=== PATIENT | female | born 1985 | race Caucasian/White ===

== ENCOUNTER 2020-01-20 16:12 | Emergency (ER) | payer OTHER, SELFPAY ==
[2020-01-20 16:26] VITALS: BP 116/68; PULSE 100; RESP 20; TEMP 36.6; O2SAT 100; BMI 30.4
[2020-01-20 18:37] VITALS: BP 109/60; PULSE 78; RESP 20; TEMP 36.4; O2SAT 100
--- NOTE | 2020-01-20 19:10 | ED_ITS ---
HPI - Headache General Chief Complaint: Headache Stated Complaint: HEADACHE Time Seen by Provider: 01/20/20 18:44 Source: patient Mode of arrival: ambulatory Limitations: no limitations History of Present Illness HPI Narrative: patient presents to ED for stressed induced headache. Patient states she has been under a lot of stress and anxiety which caused her shoulder to feel tight, body aches, slight headache. Patient denies any fever, chills, blurry vision, photophobia, thunderclap headache, dizziness, slurred speech, paralysis of extremities, chest pain, shortness of breath. Patient does admit to history of migraines. Patient denies any recent head trauma. Patient states her shoulders j and other pressure points on body feel tight due to her fibromyalgia. Patient denies any coughing or recent supposed to go visit. Patient denies anyone else at home having cold-like symptoms. MD elicited complaint: headache and migraine Pertinent past history: migraines Exacerbating factors: none Relieving factors: NSAIDs Associated symptoms: none Treatments prior to arrival: none Related Data Allergies Allergy/AdvReac Type Severity Reaction Status Date / Time gabapentin [GABAPENTIN] Allergy Unknown UNKNOWN, Verified 01/20/20 16:14 anaphylaxis, SOB hydroxyzine [From VIST[facility]] Allergy Unknown UNKNOWN Verified 01/20/20 16:14 tramadol [TRAMADOL] Allergy Unknown UNKNOWN, Verified 01/20/20 16:14 anxiety Review of Systems Review of Systems: Yes all other systems are reviewed and are negative Constitutional: Constitutional: Reports headache(s) Eyes: Eyes: Reports as per HPI, Reports no additional eye complaints, Denies change in vision, Denies decreased night vision, Denies diplopia, Denies loss of vision and Denies photophobia ENT: Reports system reviewed and no additional complaints, except as documented, Reports Normal hearing present, Denies dental pain, Denies dysphagia, Denies vertigo, Denies dizziness, Denies dry mouth, Denies ear discharge, Denies otalgia, Denies facial pain, Reports headache(s), Denies nasal trauma, Denies neck mass, Denies neck pain and Denies nose pain Cardiovascular: Cardiovascular: Reports no additional cardiovascular complaints, Denies Abdominal Cramping after Meds, Denies Abdominal Distension, Denies syncope, Denies edema, Denies irregular heart rhythm, Denies leg edema, Denies lightheadedness, Denies radiating jaw, neck or arm pain, Denies dyspnea and Denies dyspnea on exertion Respiratory: Respiratory: Reports no additional respiratory complaints, Reports no additional respiratory complaints, Denies change in phlegm color, Denies chest congestion, Denies cough, Denies hemoptysis, Denies excessive phlegm production, Denies pain on inspiration, Denies pain with cough, Denies dyspnea, Denies dyspnea on exertion, Denies stridor and Denies wheezing Gastrointestinal: Gastrointestinal: Reports no additional gastrointestinal complaints, Denies abdominal pain, Denies belching, Denies melena, Denies bloating, Denies hematochezia, Denies change in bowel habits, Denies tenesmus, Denies change in stool character, Denies coffee ground emesis and Denies dysphagia Musculoskeletal: Musculoskeletal: Denies abnormal gait, Denies back pain, Denies arthralgias, Denies joint swelling, Denies limited range of motion, Denies loss of height, Denies muscle cramps, Denies neck pain, Denies numbness and Denies radiating pain into limb Neurologic: Reports system reviewed and no additional complaints, except as documented, Reports Normal hearing present, Denies abnormal gait, Denies behavioral changes, Denies vertigo, Denies dizziness, Denies syncope, Reports headache(s), Denies lack of coordination, Denies focal weakness, Denies loss of vision, Denies memory loss, Denies numbness, Denies Other visual disturbances and Denies convulsions Psychiatric: Psychiatric: Reports no additional psychiatric complaints, Denies abnormal sleep pattern, Reports anxiety, Denies behavioral changes, Denies depression, Denies difficulty concentrating, Denies auditory hallucinations, Denies hopelessness and Denies memory loss Allergic/Immunologic: Allergic/Immunologic: Denies wheezing PMFSH Past Medical History Medical History (Updated 01/21/20 @ 02:09 by PAULA Isabel) Anxiety Asthma Depression Fibromyalgia Thyroid activity decreased Social History Social History Advance Directives: No Advance Directives Information Provided: Yes Physical Exam Vital Signs and I&O and Narrative: Vital Signs and I&O: Vital Signs Temp 97.6 F 01/20/20 18:37 Pulse 78 01/20/20 18:37 Resp 20 01/20/20 18:37 BP 109/60 01/20/20 18:37 Pulse Ox 100 01/20/20 18:37 Intake & Output 01/20/20 01/20/20 01/21/20 06:59 18:59 06:59 Weight 78.018 kg Body Mass Index 30.4 Const: General: cooperative, healthy appearing, comfortable, no acute distress and well developed Orientation/consciousness: oriented to person, oriented to place, oriented to time and patient oriented x3 HENMT: Head: Yes normal to inspection, No No palpable skull fracture present, No palpable skull fracture and No raccoon eyes General nose exam: Normal external nose present Face and sinus: Yes normal facial exam Mouth: Normal oral and palatal mucosa present Throat: Yes posterior oropharynx normal, Yes tonsils normal, Yes uvula midline, No abnormal tonsil, No peritonsillar mass and No posterior oropharynx abnormal Eyes: General: appearance normal, both eyes and all related structures Visual Sauceda: normal visual sauceda by confrontation Alignment and Position: alignment normal and position normal Periorbital: periorbital findings normal Eyelids: Yes eyelids normal Conjunctivae: conjunctivae normal Sclerae: sclerae normal Direct Ophthalmoscopy: No photophobia Neck: Neck: Yes normal visual inspection, Yes full ROM, Yes no lymp hadenopathy, No positive Brudzinski's sign and No positive Kernig's sign Chest: Chest palpation & inspection: normal inspection of the chest, normal palpation of entire chest wall and normal inspection of the chest Resp: Effort & Inspection: normal respiratory effort, able to speak in complete sentences, normal respiratory pattern, no audible wheezes and no cough Auscultation: clear to auscultation bilaterally, no crackles, no rales, no rhonchi and no wheezes Cardio: Jugular venous distension: no JVD Rate: regular rate Heart sounds: S1 normal heart sound present and S2 normal heart sound present GI: Inspection: Yes normal to inspection, No abdominal wall ecchymosis, No Abdominal wall edema and No distended Palpation (GI): nontender Percussion: Yes normal to percussion : General: No CVA tenderness and Yes no CVA tenderness Back/Spine/Pelvis: Back: no CVA tenderness, No CVA tenderness, No erythema, No warmth, No sacral edema, No ecchymosis and No back tenderness Skin: General skin exam: no rashes or lesions noted Neuro: General: oriented to person, oriented to place, oriented to time, patient oriented x3, gait normal and CN's II-XI intact bilaterally Cranial nerves: Yes CN's II-XII intact bilaterally and Yes Normal hearing present Gait exam (Neuro): Normal gait present Extrem: General: Yes normal to inspection and Yes full ROM Psych: Appearance: grossly normal and well kempt Mental Status: mental status grossly normal Speech and movement: Normal speech and movement present Course Course Course Narrative: History physical exam does not indicate meningitis. Negative for clear fluid from ears and negative for work tonight eyes to indicate head trauma. Negative for photophobia. Lungs are clear. Neuro exam is intact. History physical exam does not indicate stroke. Patient's sound like having tension headache from stress and anxiety. Patient states she has a therapist, but her therapist does not keep up with the appointments. We will do UA, UCG to make sure she is not . Toradol, Reglan, Fioricet ordered. Reevaluation(s) Reevaluation #1: Patient presently not in any distress, labs not indicated. Time: 19:19 Reevaluation #2: patient requested is seeing somebody for her anxiety, patient was tearful. Patient states headache resolved. Patient states she feels stressed any someone to talk to. Care consulted gely's spoke with patient and refer her to [facility]. She agrees patient does not need admission. workforce consultant Gely organized follow-up with PCP for more support for her anxiety and possibly starting patient on psych meds. patient walked out the ER before discharge papers can be prepared or prescription could be given to her. Time: 02:06 MDM - Headache MDM Narrative Medical decision making narrative: Patient's headache most likely tension headache due to stress and anxiety. Patient was seen by residential caregiver abelardo barriga for her anxiety. History physical exam did not indicate meningitis or signs of trauma to indicate head bleed. Patient's headache resolved with pain meds in the ER. Patient walked out the ER before re-evaluation and also discharge papers being prepared Differential Diagnosis Differential diagnosis: Likely tension headache Lab Data Labs: Lab Results 01/20/20 Range/Units 20:19 Urine Color YELLOW Urine Appearance CLEAR Urine pH 6.0 (5.0-8.0) Ur Specific [place] >= 1.030 H (1.005-1.025) Urine Protein NEG (NEG-TRACE) MG/DL Urine Glucose (UA) 100 H (NEG) MG/DL Urine Ketones NEG (NEG) MG/DL Urine Blood NEG (NEG) Urine Nitrite NEG (NEG) Ur Leukocyte Esterase NEG (NEG) Urine Test NEGATIVE (NEGATIVE) Discharge Plan Discharge Clinical Impression: Headache Qualifiers: Headache type: tension-type Patient Disposition: Elopement Instructions: Tension Headache (ED) Interventions: ED Discharge Assessment Last Done: 01/20/20 21:52
[2020-01-20] MEDS: Ketorolac Tromethamine 30 MG/ML VIAL IM (19:13)
[2020-01-20 20:27] LABS: Appearance Urine CLEAR; Color Urine YELLOW; Glucose Urine UA 100 MG/DL (NEG); Leukocyte Esterase Urine NEG (NEG); Nitrite Urine NEG (NEG); Specific Gravity - Urine >= 1.030 (1.005-1.025); Urine Blood NEG (NEG); Urine Ketones NEG (NEG); Urine Protein NEG (NEG-TRACE)
[2020-01-20 20:29] LABS: UPreg QC Valid YES; Urine Pregnancy NEGATIVE (NEGATIVE)
--- NOTE | 2020-01-20 21:47 | MHC.CARE ---
CARE team consult requested for 34 year old female who presented to ED with complaints of a headache and worsening symptoms of anxiety and depression secondary to family and home stress. Pt reported that she lives with her four children, her , and her mother, and despite there being two other adults in the home, pt does not have any support with taking care of the children. Pt expressed feeling overwhelmed and irritated with the situation, stating that if she isn't home and the children do anything at all that her mother or will call her to let her know and that she has to address it. Pt reported feeling depressed and anxious, and that she is currently connected with a therapist however she has had minimal contact with the therapist over the past few months, as she stated that the therapist (Ella at [facility]) will call when she feels like it and does most of the talking during these phone calls. Pt was previously engaged with a therapist at [facility] (Jazz), however due to missing too many appointments pt was discharged. This marketing copywriter discussed with pt strategies for addressing the challenges around making and keeping scheduled appointments, such as setting alarms and notifications on her phone, leaving a note in an unavoidable spot in the home, and scheduling a standing day and time for appointments to reinforce the memory and habit of having therapy sessions. Pt reported that she is not currently prescribed any psychiatric medications at this time, however was previously prescribed buspar and paxil. Pt stated that she recently was transferred to a different PCP and has an appt scheduled for sometime in February. Pt was encouraged to speak with her PCP about her depression and anxiety symptoms and explore an trial of an antidepressant or another medication that can aid with pt's mood and coping. ED provider was updated regarding recommendations made to address pt's complaints, and a referral for individual therapy at [facility] will be faxed to [facility].
--- NOTE | 2020-01-20 21:51 | PC.NURSE ---
pt did not want to wait for paperwork
== END 2020-01-20 21:55 | disposition left against medical advice (07) ==
PROVIDERS: Physician Assistant; Emergency Provider Internal Medicine
DX: G44.209 Tension-type headache, unspecified, not intractable (principal)
CPT/HCPCS: 81003; 81025; 96372; 99283; 99284; J1885

== ENCOUNTER 2020-11-18 12:14 | Emergency (ER) | payer OTHER, SELFPAY ==
--- NOTE | ~2020-11-18 | XR_ITS ---
EXAMINATION: XR CHEST CLINICAL INFORMATION: Cough, wheezing COMPARISON: Chest radiographs 08/12/2019, 07/23/2019, 06/20/2019 TECHNIQUE: 2 views of the chest were obtained. FINDINGS: There is no hyperinflation, airspace consolidation, groundglass opacity, or effusion. Costophrenic sulci are clear. The heart is normal in size. The hilar and mediastinal contours and visualized bony structures are unremarkable. XR/XR chest 2V IMPRESSION: Unremarkable examination.
[2020-11-18 12:50] VITALS: BP 94/67; PULSE 100; RESP 19; TEMP 36.1; O2SAT 99; BMI 26.4
--- NOTE | 2020-11-18 14:02 | ED.GENADULT ---
HPI - General Adult General Chief complaint: General Medical Stated complaint: Asthma Time Seen by Provider: 11/18/20 13:54 Source: patient Mode of arrival: ambulatory Limitations: no limitations History of Present Illness HPI narrative: 35 y/o female with history of mild intermitent asthma presenting with mild SOB and wheezing after she ran out of her albuterol inhaler today. She reports some dry cough and wheezing since yesterday. No fever, chills, headache, myalgias, chest pain, KHAN, N/V/D. No known exposure to COVID. She tried calling her doctor for a refill but was unable to get through so she came to the ER. complaint: asthma Onset (ago): day(s) Location: chest Radiation: non-radiation Severity: mild Pain Consistency: intermittent Relieving factors: medication Exacerbating factors: movement Associated symptoms: shortness of breath Treatments prior to arrival: none Related Data Previous Rx's Medication Instructions Recorded albuterol sulfate 90 mcg/actuation 1 inh INHALATION QID PRN #6.7 g 11/18/20 aerosol inhaler prednisone 20 mg tablet 40 mg PO DAILY #10 tab 11/18/20 Allergies Allergy/AdvReac Type Severity Reaction Status Date / Time gabapentin [GABAPENTIN] Allergy Unknown UNKNOWN, Verified 02/16/20 10:18 anaphylaxis, SOB hydroxyzine [From [facility]] Allergy Unknown UNKNOWN Verified 02/16/20 10:18 tramadol [TRAMADOL] Allergy Unknown UNKNOWN, Verified 02/16/20 10:18 anxiety Review of Systems Review of Systems: Constitutional: No Fever, No Chills ENT/Mouth: No sore throat, No Rhinorrhea, No Swallowing Difficulty Cardiovascular: No Chest Pain, + SOB, No Orthopnea, No Edema Respiratory: No Cough, No Sputum, + Wheezing, No dyspnea Gastrointestinal: No Nausea, No Vomiting, No Diarrhea, No abdominal Pain Musculoskeletal: No joint pain, No Myalgias Neuro:No Headache Heme/Lymph: No Lymphadenopathy PMFSH Past Medical History Attestation statement: The following information was validated with the patient. Medical History Anxiety Asthma Depression Fibromyalgia Thyroid activity decreased Surgical History History of cholecystectomy History of removal of ovarian cyst Family History Family History (Updated 02/16/20 @ 10:21 by Brittany Hernandez, [facility]) Father Prediabetes Sleep apnea Hx of fusion of cervical spine Poor circulation Mother Neuropathy Vertigo Diabetes Hypertension Paternal Grandmother Lupus Depression Bipolar 1 disorder Maternal Grandmother Diabetes Social History Social History Advance Directives: No Advance Directives Information Provided: Yes Patient : No Physical Exam Vital Signs: Vital Signs: Last Vital Signs Temp 97 F 11/18/20 12:50 Pulse 100 11/18/20 12:50 Resp 19 11/18/20 12:50 BP 94/67 11/18/20 12:50 Pulse Ox 99 11/18/20 12:50 Body Mass Index 26.4 Appearance: Alert. Oriented X3. No acute distress. HEENT: normal external inspection ENT: Pharynx normal. Neck: Normal inspection. Neck supple. CVS: Normal heart rate and rhythm. Pulses normal. Respiratory: No respiratory distress. Speaks in complete sentences. Faint end expiratory wheeze bilaterally, no rhonchi or rales Skin: Skin warm and dry. Normal skin color. Normal skin turgor. No rashes. Extremities: No lower extremity edema. No calf tenderness on palpation, no skin changes. Neuro: Oriented X 3. No motor deficit. No sensory deficit. Course Course Course Narrative: 35 y/o female presenting with mild wheezing and SOB after she ran out of her albuterol inhaler. +dry cough. Will check CXR and COVID swab. She is nontoxic appearing, afebrile, in no respiratory distress. Reevaluation(s) Reevaluation #1: CXR clear. Will call with Viral PCR results. She is vaccinated against COVID-19. She is stable for discharge home with prednisone and PRN albuterol. Patient agrees with plan. Critical Care Time Critical Care Time Critical Care Time: No Discharge Plan Discharge Clinical Impression: Asthma Qualifiers: Asthma severity: mild Asthma persistence: intermittent Asthma complication type: unspecified Qualified Code(s): J45.20 - Mild intermittent asthma, uncomplicated Patient Disposition: Home, Self-Care Instructions: Asthma (ED) Additional Instructions: Your chest x-ray was normal. You were tested for COVID-19, Flu and RSV. We will call you with the results this afternoon. Use the prescribed albuterol inhaler as directed. Take the prescribed steroid once per day for 5 days. Follow up with your doctor in 1 week. If you develop new or worsening symptoms call 911 or come back to the ER for further evaluation. Prescriptions: New prednisone 20 mg tablet 40 mg PO DAILY Qty: 10 RF: 0 albuterol sulfate 90 mcg/actuation HFA aerosol inhaler 1 inh inhalation QID PRN (Reason: shortness of breath or wheezing) Qty: 6.7 RF: 0
[2020-11-18 16:08] LABS: Influenza A PCR NEGATIVE (Negative); Influenza B PCR NEGATIVE (Negative); Resp Syncy Virus RNA Qual PCR NEGATIVE (Negative); SARS COV2 PCR INHOUSE NEGATIVE (Negative)
== END 2020-11-18 15:30 | disposition home or self-care (01) ==
PROVIDERS: Physician Assistant; Emergency Provider Emergency Medicine
DX: J45.20 Mild intermittent asthma, uncomplicated (principal); Z20.822 Contact with and (suspected) exposure to COVID-19; Z79.899 Other long term (current) drug therapy
CPT/HCPCS: 0241U; 36415; 71046; 99283

== ENCOUNTER 2020-12-30 19:58 | Emergency (ER) | payer OTHER, SELFPAY ==
[2020-12-30 20:54] VITALS: BP 110/78; PULSE 78; RESP 16; TEMP 36.2; O2SAT 100; BMI 26.5
[2020-12-30 21:17] LABS: Appearance Urine CLEAR; Color Urine YELLOW; Glucose Urine UA NEG (NEG); Leukocyte Esterase Urine NEG (NEG); Nitrite Urine NEG (NEG); Specific Gravity - Urine 1.015 (1.005-1.025); UACC Culture Trigger NO; Urine Blood 1+ (NEG); Urine Ketones NEG (NEG); Urine Protein NEG (NEG-TRACE)
[2020-12-30 21:19] LABS: UPreg QC Valid YES; Urine Pregnancy NEGATIVE (NEGATIVE)
[2020-12-30 21:26] LABS: Bacteria Urine 1+ /LPF; Squamous Epithelial Cell Urine 1+ /LPF
[2020-12-30 21:27] LABS: RBC Urine 0-2 /HPF (0); WBC Urine 0 /HPF (0-4)
--- NOTE | 2020-12-30 22:57 | ED_ITS ---
HPI - General Adult General Chief complaint: Abdominal Pain Stated complaint: pelvic pain, vaginal bleeding Time Seen by Provider: 12/30/20 22:57 Source: patient Mode of arrival: ambulatory Limitations: no limitations History of Present Illness HPI narrative: 35-year-old female came in for evaluation of vaginal spotting. Patient had her menstruation last week than patient lift heavy box patient noted to have vaginal spotting after the, patient decline pain or cramps, patient also declined chance of being , no nausea or vomiting or fever. Patient declined heavy vaginal bleeding just few spots of blood in the liner. Related Data Previous Rx's Medication Instructions Recorded albuterol sulfate 90 mcg/actuation 1 inh INHALATION QID PRN #6.7 g 11/18/20 aerosol inhaler prednisone 20 mg tablet 40 mg PO DAILY #10 tab 11/18/20 Allergies Allergy/AdvReac Type Severity Reaction Status Date / Time gabapentin [GABAPENTIN] Allergy Unknown UNKNOWN, Verified 12/30/20 21:00 anaphylaxis, SOB hydroxyzine [From VISTARIL] Allergy Unknown UNKNOWN Verified 12/30/20 21:00 tramadol [TRAMADOL] Allergy Unknown UNKNOWN, Verified 12/30/20 21:00 anxiety Review of Systems Review of Systems: All other systems are reviewed and are negative Constitutional: Reports as per HPI and Reports no additional constitutional complaints Eyes: Reports as per HPI and Reports no additional eye complaints Reports system reviewed and no additional complaints, except as documented Cardiovascular: Reports as per HPI and Reports no additional cardiovascular complaints Respiratory: Reports as per HPI and Reports no additional respiratory complaints Gastrointestinal: Reports as per HPI and Reports no additional gastrointestinal complaints Genitourinary: Reports no additional female genitourinary complaints Musculoskeletal: Reports no additional musculoskeletal complaints Skin/Breast: Reports system reviewed and no additional complaints, except as docu Psychiatric: Reports no additional psychiatric complaints Endocrine: Reports no additional endocrine complaints Hematologic/Lymphatic: Reports no additional hematologic/lymphatic complaints Allergic/Immunologic: Reports no additional allergic/immunologic complaints Reports system reviewed and no additional complaints, except as documented and Reports Abnormal speech present [facility] Past Medical History Medical History Anxiety Asthma Depression Fibromyalgia Thyroid activity decreased Surgical History History of cholecystectomy History of removal of ovarian cyst Family History Family History Father Prediabetes Sleep apnea Hx of fusion of cervical spine Poor circulation Mother Neuropathy Vertigo Diabetes Hypertension Paternal Grandmother Lupus Depression Bipolar 1 disorder Maternal Grandmother Diabetes Social History Social History Advance Directives: No Advance Directives Information Provided: No Physical Exam Vital Signs: Vital Signs: Last Vital Signs Temp 97.6 F 12/31/20 00:00 Pulse 67 12/31/20 00:00 Resp 18 12/31/20 00:00 BP 111/67 12/31/20 00:00 Pulse Ox 99 12/31/20 00:00 Body Mass Index 26.5 Vital signs have been reviewed as appeared to be correct. Blood pressure normal. Heart rate normal. Respiration rate normal. Temperature normal. Oxygen saturation normal. Appearance: Alert. Oriented X3. No acute distress. Head: Normal external exam. Normocephalic. Atraumatic. No Walsh signs noted. No raccoon eyes noted Eyes: PERRLA. EOMI. Conjunctiva and sclera normal. Eyelids normal. ENT: TM's Normal. Pharynx normal. Uvula midline. Moist mucous membranes. No trismus noted. No drooling noted. No muffled voice noted. Neck: Normal inspection. Neck supple. FROM. No adenopathy. Thyroid Normal. No meningeal signs. No neck mass noted. CVS: Normal heart rate and rhythm. Heart sound normal. No murmurs noted. Pulses normal throughout. Respiratory: No respiratory distress. Painless inspiration. Breath sounds normal. No wheezes/rales/rhonchi noted. Chest nontender. No accessory muscle usage noted or decreased air movement noted. Abdomen: Soft and nontender. Bowel sounds normal in all 4 quadrants. No distention noted. No organomegaly noted. No visible injury noted. Pelvic exam: Deferred for her OBGYN as per patient request. Back: No CVA tenderness. Full range of motion noted. Skin: Skin warm and dry. Normal skin color. Normal skin turgor. No rashes/lesions/lacerations noted. Extremities: No lower extremity edema. Extremities exhibit normal range of motion. Extremities nontender. Neuro: Oriented X 3. Cranial nerve exam: II-XII are grossly intact No motor deficit. No sensory deficit. Reflexes normal. Course Course Course Narrative: Assessment and plan. 35-year-old female came in for evaluation of vaginal spotting, patient is not , no sign of severe infection, abdominal exam is benign, patient preferred to get to her OBGYN to get a pelvic exam and not doing it today. Medical Decision Making Lab Data Lab results reviewed: Yes I reviewed the patient's lab results. Result diagrams: 12/30/20 23:03 12/30/20 23:03 Labs: Lab Results 12/30/20 12/30/20 12/30/20 Range/Units 21:04 21:04 23:03 WBC 7.9 (4.8-10.8) X10*3/uL RBC 4.19 L (4.20-5.50) X10*6/uL Hgb 12.1 (12.0-16.0) g/dl Hct 35.7 L (37-47) % MCV 85.2 (80-98) fL MCH 28.9 (27.0-33.0) pg MCHC 33.9 (31.0-35.0) g/dl RDW 12.4 (11.0-16.0) % Plt Count 250 (160-400) X10*3/uL MPV 10.3 (9.4-12.3) fL Immature Gran % (Auto) 0.1 (0.0-0.4) % Neut % (Auto) 51.0 (45-73) % Lymph % (Auto) 38.1 (20-40) % Cheatham % (Auto) 5.3 (2-11) % Eos % (Auto) 4.9 H (0-4) % Baso % (Auto) 0.6 (0-2) % Lymph # (Auto) 3.0 (1.2-4.9) X10*3/uL [place] # (Auto) 0.4 (0.1-1.2) X10*3/uL Eos # (Auto) 0.4 (0.0-0.4) X10*3/uL Baso # (Auto) 0.1 (0.0-0.2) X10*3/uL Abs Immat Gran (auto) 0.01 (0.00-0.03) X10*3/uL Absolute Neuts (auto) 4.0 (2.0-8.3) X10*3/uL Absolute Nucleated RBC 0.000 (0.0-0.012) X10*3/uL Nucleated RBC % (auto) 0.0 (0.0-0.2) /100WBC Sodium (135-145) mmol/L Potassium (3.3-5.1) mmol/L Chloride (96-108) mmol/L Carbon Dioxide (22-29) mmol/L Anion Gap (12-20) BUN (9-16) mg/dL Creatinine (0.5-1.4) mg/dL Estim Creat Clear Calc Estimated GFR Random Glucose (60-115) mg/dL Calcium (8.4-10.2) mg/dL Total Bilirubin (0.0-1.0) mg/dL AST (5-31) U/L ALT (0-31) U/L Alkaline Phosphatase (39-117) U/L Total Protein (6.5-8.0) g/dL Albumin (3.5-5.0) g/dL Urine Color YELLOW Urine Appearance CLEAR Urine pH 6.0 (5.0-8.0) Ur Specific Kathleen 1.015 (1.005-1.025) Urine Protein NEG (NEG-TRACE) MG/DL Urine Glucose (UA) NEG (NEG) MG/DL Urine Ketones NEG (NEG) MG/DL Urine Blood 1+ H (NEG) Urine Nitrite NEG (NEG) Ur Leukocyte Esterase NEG (NEG) Urine RBC 0-2 (0) /HPF Urine WBC 0 (0-4) /HPF Ur Squamous Epith Cells 1+ /LPF Urine Bacteria 1+ /LPF Urine Test NEGATIVE (NEGATIVE) 12/30/20 Range/Units 23:03 WBC (4.8-10.8) X10*3/uL RBC (4.20-5.50) X10*6/uL Hgb (12.0-16.0) g/dl Hct (37-47) % MCV (80-98) fL MCH (27.0-33.0) pg MCHC (31.0-35.0) g/dl RDW (11.0-16.0) % Plt Count (160-400) X10*3/uL MPV (9.4-12.3) fL Immature Gran % (Auto) (0.0-0.4) % Neut % (Auto) (45-73) % Lymph % (Auto) (20-40) % Cheatham % (Auto) (2-11) % Eos % (Auto) (0-4) % Baso % (Auto) (0-2) % Lymph # (Auto) (1.2-4.9) X10*3/uL [place] # (Auto) (0.1-1.2) X10*3/uL Eos # (Auto) (0.0-0.4) X10*3/uL Baso # (Auto) (0.0-0.2) X10*3/uL Abs Immat Gran (auto) (0.00-0.03) X10*3/uL Absolute Neuts (auto) (2.0-8.3) X10*3/uL Absolute Nucleated RBC (0.0-0.012) X10*3/uL Nucleated RBC % (auto) (0.0-0.2) /100WBC Sodium 139 (135-145) mmol/L Potassium 3.4 (3.3-5.1) mmol/L Chloride 108 (96-108) mmol/L Carbon Dioxide 23 (22-29) mmol/L Anion Gap 11 L (12-20) BUN 11 (9-16) mg/dL Creatinine 0.77 (0.5-1.4) mg/dL Estim Creat Clear Calc 96.2 Estimated GFR > 60 Random Glucose 97 (60-115) mg/dL Calcium 8.7 (8.4-10.2) mg/dL Total Bilirubin 0.4 (0.0-1.0) mg/dL AST 9 (5-31) U/L ALT 10 (0-31) U/L Alkaline Phosphatase 47 (39-117) U/L Total Protein 6.0 L (6.5-8.0) g/dL Albumin 4.0 (3.5-5.0) g/dL Urine Color Urine Appearance Urine pH (5.0-8.0) Ur Specific Kathleen (1.005-1.025) Urine Protein (NEG-TRACE) MG/DL Urine Glucose (UA) (NEG) MG/DL Urine Ketones (NEG) MG/DL Urine Blood (NEG) Urine Nitrite (NEG) Ur Leukocyte Esterase (NEG) Urine RBC (0) /HPF Urine WBC (0-4) /HPF Ur Squamous Epith Cells /LPF Urine Bacteria /LPF Urine Test (NEGATIVE) Discharge Plan Discharge Clinical Impression: Vaginal spotting Patient Disposition: Home, Self-Care Instructions: Dysfunctional Uterine Bleeding (ED) Prescriptions: No Action prednisone 20 mg tablet 40 mg PO DAILY Qty: 10 RF: 0 albuterol sulfate 90 mcg/actuation HFA aerosol inhaler 1 inh inhalation QID PRN (Reason: shortness of breath or wheezing) Qty: 6.7 RF: 0 Referrals: Wilmar Tapia MD [Physician] - 2 days
[2020-12-30 22:59] VITALS: BP 114/66; PULSE 73; RESP 18; TEMP 37.1; O2SAT 100
[2020-12-30 23:07] LABS: Basophils Absolute Auto 0.1 X10*3/uL (0.0-0.2); Basophils Percent Auto 0.6 % (0-2); Eosinophils Absolute Auto 0.4 X10*3/uL (0.0-0.4); Eosinophils Percent Auto 4.9 % (0-4); Hematocrit 35.7 % (37-47); Hemoglobin 12.1 g/dl (12.0-16.0); Imm Gran Abs Auto 0.01 X10*3/uL (0.00-0.03); Imm Gran Pct Auto 0.1 % (0.0-0.4); Lymphocytes Percent Auto 38.1 % (20-40); MANUAL DIFF FLAG NO; Mean Corpuscular HGB Conc 33.9 g/dl (31.0-35.0); Mean Corpuscular Hemoglobin 28.9 pg (27.0-33.0); Mean Corpuscular Volume 85.2 fL (80-98); Mean Platelet Volume 10.3 fL (9.4-12.3); Monocytes Absolute Auto 0.4 X10*3/uL (0.1-1.2); Monocytes Percent Auto 5.3 % (2-11); Platelet Count 250 X10*3/uL (160-400); Red Blood Count 4.19 X10*6/uL (4.20-5.50); Red Cell Distribution Width 12.4 % (11.0-16.0); White Blood Count 7.9 X10*3/uL (4.8-10.8)
[2020-12-30 23:38] LABS: Alanine Aminotransferase 10 U/L (0-31); Alkaline Phosphatase 47 U/L (39-117); Anion Gap 11 (12-20); Aspartate Amino Transferase 9 U/L (5-31); Bilirubin Total 0.4 mg/dL (0.0-1.0); Blood Urea Nitrogen 11 mg/dL (9-16); Calcium 8.7 mg/dL (8.4-10.2); Carbon Dioxide 23 mmol/L (22-29); Chloride 108 mmol/L (96-108); Creatinine Clr Calc Pharmacy 96.2; Estimated Glomerular Filt Rate > 60; Glucose Random 97 mg/dL (60-115); Potassium 3.4 mmol/L (3.3-5.1); Sodium 139 mmol/L (135-145)
[2020-12-31] VITALS: BP 111/67; PULSE 67; RESP 18; TEMP 36.4; O2SAT 99
== END 2020-12-31 01:04 | disposition home or self-care (01) ==
PROVIDERS: Emergency Provider Emergency Medicine
DX: N93.8 Other specified abnormal uterine and vaginal bleeding (principal); Z79.899 Other long term (current) drug therapy
CPT/HCPCS: 36415; 80053; 81001; 81025; 85025; 99283; 99284

== ENCOUNTER 2021-01-13 12:53 | Outpatient (REF) | payer OTHER, SELFPAY | END 2021-01-13 12:54 | disposition home or self-care (01) | LOC: HO.LAB 12:53 | PROVIDERS: Visit Provider Internal Medicine | DX: Z20.822 Contact with and (suspected) exposure to COVID-19 (principal) | CPT/HCPCS: C9803; U0003; U0005 ==

== ENCOUNTER 2021-08-16 18:16 | Outpatient (REF) | payer OTHER, SELFPAY ==
[2021-08-16 18:57] LABS: Influenza A PCR NEGATIVE (Negative); Influenza B PCR NEGATIVE (Negative); Resp Syncy Virus RNA Qual PCR NEGATIVE (Negative); SARS COV2 PCR INHOUSE NEGATIVE (Negative)
== END 2021-08-16 18:17 | disposition home or self-care (01) ==
LOC: HO.LNP 18:16
PROVIDERS: Visit Provider Physician Assistant
DX: Z20.822 Contact with and (suspected) exposure to COVID-19 (principal); J06.9 Acute upper respiratory infection, unspecified
CPT/HCPCS: 0241U

== ENCOUNTER 2021-11-22 17:48 | Emergency (ER) | payer OTHER, SELFPAY ==
--- NOTE | ~2021-11-22 | XR_ITS ---
EXAMINATION: XR SOFT TISSUE NECK CLINICAL INDICATION: Question of foreign body COMPARISON: None TECHNIQUE: 2 views of the soft tissue neck were obtained. FINDINGS: Soft tissue films of the neck demonstrate a normal larynx, pharynx and upper trachea. No soft tissue swelling or opaque foreign body is demonstrated. Some mild degenerative changes are present in the spine. XR/XR soft tissue neck IMPRESSION: Unremarkable examination without foreign body detected.
[2021-11-22 18:41] VITALS: BP 122/73; PULSE 76; RESP 18; TEMP 36.8; O2SAT 96; BMI 26.5
--- NOTE | 2021-11-22 22:27 | ED.GENADULT ---
HPI - General Adult General Chief complaint: General Medical Stated complaint: FB in Throat Time Seen by Provider: 11/22/21 22:26 Source: patient Mode of arrival: ambulatory Limitations: no limitations History of Present Illness HPI narrative: 36-year-old female came in for evaluation of sore throat. Patient eating a cheeseburger yesterday when a big piece of burger stuck in her throat, patient was able to remove it with her finger inducing self vomiting, patient been complaining of sore throat, feels a bone in her throat is moving, patient is able to swallow her saliva and been drinking liquid all day today. In the emergency department patient is able to drink fluid and eat saltine. No recent sickness, no sick contact. Related Data Previous Rx's Medication Instructions Recorded miscellaneous medical supply 1 ea miscellaneous DAILY 99 days 08/16/21 #1 ea prednisone 20 mg tablet 40 mg PO DAILY #10 tabs 08/16/21 albuterol sulfate 2.5 mg/3 mL 2.5 mg (3 mL) inhalation Q6H 15 11/03/21 (0.083 %) solution for nebulization days #180 mL albuterol sulfate 90 mcg/actuation 1 inh inhalation QID PRN shortness 11/03/21 aerosol inhaler of breath or wheezing #6.7 grams amitriptyline 25 mg tablet 25 mg PO BEDTIME 30 days #30 tabs 11/03/21 omeprazole 40 mg capsule,delayed 40 mg PO DAILY #14 caps 11/22/21 release Allergies Allergy/AdvReac Type Severity Reaction Status Date / Time gabapentin [GABAPENTIN] Allergy Unknown UNKNOWN, Verified 11/22/21 18:41 anaphylaxis, SOB hydroxyzine [From VISTARIL] Allergy Unknown UNKNOWN Verified 08/16/21 14:04 tramadol [TRAMADOL] Allergy Unknown UNKNOWN, Verified 08/16/21 14:04 anxiety Review of Systems Review of Systems: All other systems are reviewed and are negative Constitutional: Reports as per HPI and Reports no additional constitutional complaints Eyes: Reports as per HPI and Reports no additional eye complaints Reports system reviewed and no additional complaints, except as documented Cardiovascular: Reports as per HPI and Reports no additional cardiovascular complaints Respiratory: Reports as per HPI and Reports no additional respiratory complaints Gastrointestinal: Reports as per HPI and Reports no additional gastrointestinal complaints Genitourinary: Reports no additional female genitourinary complaints Musculoskeletal: Reports no additional musculoskeletal complaints Skin/Breast: Reports system reviewed and no additional complaints, except as docu Psychiatric: Reports no additional psychiatric complaints Endocrine: Reports no additional endocrine complaints Hematologic/Lymphatic: Reports no additional hematologic/lymphatic complaints Allergic/Immunologic: Reports no additional allergic/immunologic complaints Reports system reviewed and no additional complaints, except as documented and Reports Abnormal speech present [facility] Past Medical History Medical History Anxiety Asthma Depression Fibromyalgia Thyroid activity decreased Surgical History History of cholecystectomy History of removal of ovarian cyst Family History Family History Father Prediabetes Sleep apnea Hx of fusion of cervical spine Poor circulation Mother Neuropathy Vertigo Diabetes Hypertension Paternal Grandmother Lupus Depression Bipolar 1 disorder Maternal Grandmother Diabetes Other Mental health disorder Social History Social History Housing: Apartment Alcohol intake: never Tobacco use type: Smokeless Tobacco e-Cigarette/Vaping Use: Currently Using Second Hand Smoke Exposure: No Advance Directives: No Advance Directives Information Provided: No service: No Current occupational status: unemployed Cognitive needs: No Hearing needs: No Vision needs: No Physical Exam ED Vital Signs: Vital Signs - 24 hr 11/22/21 18:41 11/22/21 22:34 Temperature 98.3 F 98.2 F Pulse Rate 76 70 Respiratory Rate 18 20 Blood Pressure 122/73 112/73 Pulse Oximetry 96 99 Oxygen Delivery Method Room Air Room Air BMI result Body Mass Index 26.5 Vital signs have been reviewed as appeared to be correct. Blood pressure normal. Heart rate normal. Respiration rate normal. Temperature normal. Oxygen saturation normal. Appearance: Alert. Oriented X3. No acute distress. Head: Normal external exam. Normocephalic. Atraumatic. No Walsh signs noted. No raccoon eyes noted Eyes: PERRLA. EOMI. Conjunctiva and sclera normal. Eyelids normal. ENT: TM's Normal. Pharynx normal. Uvula midline. Moist mucous membranes. No trismus noted. No drooling noted. No muffled voice noted. Neck: Normal inspection. Neck supple. FROM. No adenopathy. Thyroid Normal. No meningeal signs. No neck mass noted. CVS: Normal heart rate and rhythm. Heart sound normal. No murmurs noted. Pulses normal throughout. Respiratory: No respiratory distress. Painless inspiration. Breath sounds normal. No wheezes/rales/rhonchi noted. Chest nontender. No accessory muscle usage noted or decreased air movement noted. Abdomen: Soft and nontender. Bowel sounds normal in all 4 quadrants. No distention noted. No organomegaly noted. No visible injury noted. Back: No CVA tenderness. Full range of motion noted. Skin: Skin warm and dry. Normal skin color. Normal skin turgor. No rashes/lesions/lacerations noted. Extremities: No lower extremity edema. Extremities exhibit normal range of motion. Extremities nontender. Neuro: Oriented X 3. Cranial nerve exam: II-XII are grossly intact No motor deficit. No sensory deficit. Reflexes normal. Course Course Course Narrative: 36-year-old female came in with sore throat and painful swallowing after show on a piece of cheese burger yesterday, patient is able to swallow saliva, able to speak in full sentence, patient is tolerating liquids and solid food in the ED. Throat swab is negative for strep pharyngitis, x-ray of the soft tissue of the neck shows no acute abnormalities. Vital signs stable. Patient feels better after given Maalox, lidocaine viscous and Pepcid in the ED. Medical Decision Making Lab Data Lab results reviewed: Yes I reviewed the patient's lab results. Labs: Lab Results 11/22/21 Range/Units 23:19 S. pyogenes GrpA LOUIS Negative (Negative) Imaging Data Soft tissue neck x-ray: Attestation: I personally reviewed and interpreted this imaging study as follows: Radiologist's impression: Unremarkable examination without foreign body detected. Discharge Plan Discharge Clinical Impression: Esophagitis Patient Disposition: Home, Self-Care Instructions: Esophagitis (ED) Prescriptions: New omeprazole 40 mg capsule,delayed release(DR/EC) 40 mg PO DAILY Qty: 14 0RF No Action albuterol sulfate 2.5 mg /3 mL (0.083 %) solution for nebulization 2.5 mg inhalation Q6H 15 Days Qty: 180 0RF albuterol sulfate 90 mcg/actuation HFA aerosol inhaler 1 inh inhalation QID PRN (Reason: shortness of breath or wheezing) Qty: 6.7 2RF amitriptyline 25 mg tablet 25 mg PO BEDTIME 30 Days Qty: 30 2RF prednisone 20 mg tablet 40 mg PO DAILY Qty: 10 0RF miscellaneous medical supply Misc 1 ea miscellaneous DAILY 99 Days Qty: 1 0RF Referrals: John Gray PA-C [Primary Care Provider] - Naomi Godfrey MD [Physician] - Stand Alone Forms: Work/School Release
[2021-11-22 22:34] VITALS: BP 112/73; PULSE 70; RESP 20; TEMP 36.8; O2SAT 99
[2021-11-22] MEDS: Famotidine 20 MG TABLET PO (22:40)
[2021-11-22] MEDS: Magnesium Hydrox/Alum Hydrox 30 ML ORAL.SUSP PO (22:40)
[2021-11-22] MEDS: Lidocaine HCl Viscous 2 % 15 ML SOLUTION MUCOUS MEM (22:40)
[2021-11-23 00:12] LABS: Strep A Nucleic Acid Negative (Negative)
== END 2021-11-23 01:08 | disposition home or self-care (01) ==
PROVIDERS: Emergency Provider Emergency Medicine; PCP Physician Assistant
DX: K20.90 Esophagitis, unspecified without bleeding (principal); J02.9 Acute pharyngitis, unspecified
CPT/HCPCS: 36415; 70360; 87651; 99283

== ENCOUNTER 2022-02-02 08:04 | Emergency (ER) | payer OTHER, SELFPAY ==
--- NOTE | ~2022-02-02 | XR_ITS ---
EXAMINATION: XR SACRUM AND COCCYX CLINICAL INFORMATION: Fall COMPARISON: None TECHNIQUE: 2 views of the sacrum and 2 views of the coccyx were obtained. FINDINGS: There are no fractures. No bone, joint or soft tissue abnormality is demonstrated. Metallic piercing noted XR/XR sacrum coccyx min 2V IMPRESSION: Unremarkable examination.
[2022-02-02 09:54] VITALS: BP 112/75; PULSE 102; RESP 18; TEMP 36.4; O2SAT 100; BMI 18.2
--- OUTSIDE RECORDS SUMMARY | 2022-02-02 11:47 | XMS_ITS | Continuity of Care Document ---
:1985 Author Organization [facility] Address [address] [place] [id number]- Care Team Providers Name Role Phone Niles GALDAMEZ, Lloyd Ireland Primary Care Physician Encounter [facility] [place], [place] Date(s): 03/15/21 - 03/15/[address] [address]- Discharge Disposition: A-D/C Walkout Attending Physician: Not on Staff, Attending MD Admitting Physician: Not on Staff, Admitting MD Referring Physician: Not on Staff, Referring MD Allergies, Adverse Reactions, Alerts Substance Reaction Severity Status gabapentin1 Active Vistaril2 Active traMADol3 Active 1sob as [id number], [id number] Immunizations Given and Recorded Vaccine Date Status Refusal Reason tetanus-diphtheria toxoids (Td)1 09/25/12 Given 1Admin Note: vis given 03/03/08 Medications Aerochamber See Instructions, # 1 each, Maintenance, as instructed, 01/24/18 14:36:11 EDT, Compound Start Date: 01/24/18 Status: OrderedAerochamber See Instructions, # 1 each, Refills 0, Tot. Refills 0, Maintenance, To use with albuterol and Flovent, 09/01/16 13:35:07, Compound Start Date: 09/01/16 Status: Orderedalbuterol 0.083% inhalation solution 3 mL = 2.5 mg, Neb, Once, Lot # [id number] Exp: 04/2018 Manuf: [facility] 0 Refills, Maintenance, 10/18/17 11:44:02 EDT Start Date: 10/18/17 Stop Date: 11/01/17 Status: Orderedalbuterol 0.083% inhalation solution 3 mL = 2.5 mg, Inhalation, Every 6 hours, PRN for wheezing, # 25 each, 11 Refills, Maintenance, 04/04/18 10:13:36 EST, Solution Start Date: 04/04/18 Status: OrderedAlcohol Pads See Instructions, # 200 each, Refills 5, Tot. Refills 5, Maintenance, pre Diabetes Mellitus; check BS once a day, 01/01/18 14:41:58 EDT, Compound Start Date: 01/01/18 Stop Date: 06/30/18 Status: OrderedCymbalta 30 mg oral enteric coated capsule 1 capsule = 30 mg, By Mouth, Daily, # 30 capsule, 11 Refills, Maintenance, 04/04/18 10:12:30 EST Start Date: 04/04/18 Stop Date: 03/30/19 Status: OrderedDulera 200 mcg-5 mcg/inh inhalation aerosol 2 puffs, Inhalation, 2 times a day, rinse mouth and throat after use, # 1 each, 6 Refills, Maintenance, 01/24/18 14:35:38 EDT, Aerosol, 2 puffs Inhalation 2 times a day,Instr:rinse mouth and throat after use Start Date: 01/24/18 Status: Orderedethinyl estradiol-levonorgestrel extended cycle 30 mcg-0.15 mg oral tablet 1 tablet, By Mouth, Daily, # 91 tablet, 2 Refills, Maintenance, 08/25/16 13:58:31, Tablet, 1 tablet By Mouth Daily Start Date: 08/25/16 Status: Orderedfluticasone CFC free 220 mcg/inh inhalation aerosol 1 puffs, Inhalation, 2 times a day, # 1 each, 11 Refills, Maintenance, 11/23/17 11:36:10 EDT, Aerosol Start Date: 11/23/17 Stop Date: 11/18/18 Status: OrderedFreestyle Lite Lancets See Instructions, # 200 each, Refills 5, Tot. Refills 5, Maintenance, pre-DM; check BS once a day, 01/01/18 14:41:42 EDT, Compound Start Date: 01/01/18 Stop Date: 06/30/18 Status: OrderedFreestyle Lite Monitor See Instructions, # 1 each, Maintenance, pre-DM; check BS once a day, 01/01/18 14:41:25 EDT, Compound Start Date: 01/01/18 Stop Date: 01/31/18 Status: OrderedFreestyle Lite Test Strips See Instructions, # 200 each, Tot. Refills 5, Maintenance, pre-DM, check BS once a day, 01/01/18 14:41:19 EDT, Compound Start Date: 01/01/18 Stop Date: 01/31/18 Status: OrderedmetFORMIN 500 mg oral tablet 1 tablet = 500 mg, By Mouth, Daily, with meals, # 30 tablet, 0 Refills, Maintenance, 01/01/18 14:43:51 EDT, Tablet Start Date: 01/01/18 Status: OrderedMobic 15 mg oral tablet 1 tablet = 15 mg, By Mouth, Daily, # 30 tablet, 11 Refills, Maintenance, 04/04/18 10:16:16 EST, Tablet Start Date: 04/04/18 Status: Orderedmontelukast 10 mg oral tablet 10 mg, 1, tablet, By Mouth, Daily in PM, # 30 tablet, Refills 11, Tot. Refills 11, Maintenance, 04/04/18 10:17:16 EST, Route to Pharmacy Electronically, [id number], [facility]/pharmacy #[id number] Start Date: 04/04/18 Status: Orderedmultivitamin Lipotropic with Multivitamins oral tablet 1 tablet, By Mouth, Daily, o multivitamin that insurace covers, # 90 tablet, 3 Refills, Maintenance,10/24/17 13:55:12 EDT, Tablet, 1 tablet By Mouth Daily,Instr:o multivitamin that insurace covers Start Date: 10/24/17 Status: OrderedNebulizer/Compressor See Instructions, # 1 each, Maintenance, Use to administer albuterol. Dx: asthma, 01/01/18 14:17:24 EDT, Compound Start Date: 01/01/18 Status: OrderedOrtho Cyclen oral tablet 1 tablet, By Mouth, Daily, # 28 tablet, 3 Refills, Maintenance, Tablet Start Date: 11/05/12 Status: OrderedpredniSONE 10 mg oral tablet See Instructions, 4tablets days 1-3, 3 tablets days 4 and 5, 2 tablets days 6 and 7, and one tablet days 8 and 9 with food please print in turkish, # 24 tablet, 0 Refills, Maintenance, 10/18/17 12:29:47 EDT, Tablet Start Date: 10/18/17 Status: OrderedProAir HFA 90 mcg/inh inhalation aerosol with adapter 2, puffs, Inhalation, Every 4 hours, PRN, # 18 Gm, Refills 11, Tot. Refills 11, Maintenance, wheezing, 04/04/18 10:13:35 EST, Route to Pharmacy Electronically, [id number], [facility]/pharmacy #[id number] Start Date: 04/04/18 Status: OrderedVoltaren 1% topical gel 1 application, Topically, 4 times a day, PRN for pain, # 100 Gm, 4 Refills, Maintenance, 11/23/17 11:54:10 EDT, Gel, 1 application Topically 4 times a day,x14 days,PRN:for pain Start Date: 11/23/17 Stop Date: 02/01/18 Status: OrderedZithromax 250 mg oral tablet 1 pack/packet, By Mouth, Once, # 6 tablet, 0 Refills, Soft Stop, 10/18/17 12:30:22 EDT, Tablet Start Date: 10/18/17 Status: OrderedZyrTEC 10 mg oral tablet 1 tablet = 10 mg, By Mouth, Daily, # 30 tablet, 1 Refills, Maintenance, 01/01/18 14:18:11 EDT, Tablet Start Date: 01/01/18 Status: Ordered Problem List Condition Effective Dates Status Health Status Informant Asthma(Confirmed) Active control counseling(Confirmed) Active Joint pain(Confirmed)1 Active BCP ( control pills) Active initiation(Confirmed) 1working out diagnosis Vital Signs Most recent to oldest [Reference Range]: 1 2 Height 163 cm (03/15/21 4:14 PM) Weight 68 kg (03/15/21 4:14 PM) Oxygen Saturation [94-100 %] 99 % 100 % (03/15/21 4:14 PM) (03/15/21 4:10 PM) Pulse Rate [55-90 bpm] 98 bpm 88 bpm *H* (03/15/21 4:10 PM) (03/15/21 4:14 PM) Body Mass Index [18.5-24.99] 25.59 *H* (03/15/21 4:14 PM) Blood Pressure [90-138/55-84 mm Hg] 118/76 mm Hg (03/15/21 4:14 PM) Respiratory Rate [16-30 br/min] 18 br/min (03/15/21 4:14 PM) Temperature [96.8-100.4 DegF] 98.9 DegF (03/15/21 4:14 PM) Mode of Delivery (Oxygen) Room air Room air (03/15/21 4:14 PM) (03/15/21 4:10 PM) Blood pressure sites Arm, right (03/15/21 4:14 PM) Temperature Route Oral (03/15/21 4:14 PM) Dry Weight 68 kg (03/15/21 4:14 PM) Social History Social History Type Response Smoking Status Former smoker; Tobacco user in household: No; Type: Cigarettes entered on: 01/24/18 Sex
--- OUTSIDE RECORDS SUMMARY | 2022-02-02 11:47 | XMS_ITS | Continuity of Care Document ---
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, Lloyd Ireland Primary Care Physician Encounter [facility] Date(s): 03/16/21 - 03/16/[address] [id number] Attending Physician: Lester CRAIG, [place] Allergies, Adverse Reactions, Alerts Substance Reaction Severity Status gabapentin1 Active Vistaril2 Active traMADol3 Active 1sob as [id number], [id number] Immunizations Given and Recorded Vaccine Date Status [...] = 2.5 mg, Neb, Once, Lot # [id number] Exp: 04/2018 Manuf: [facility] 0 Refills, [...] 04/04/18 10:17:16 EST, Route to Pharmacy Electronically, [id number], [facility]/pharmacy #[id number] Start Date: 04/04/18 Status: Orderedmultivitamin Lipotropic with [...] and 9 with food please print in lithuanian, # 24 tablet, 0 Refills, Maintenance, 10/18/17 12:29:47 EDT, Tablet Start Date: 10/18/17 Status: OrderedProAir HFA 90 mcg/inh inhalation aerosol with adapter 2, puffs, Inhalation, Every 4 hours, PRN, # 18 Gm, Refills 11, Tot. Refills 11, Maintenance, wheezing, 04/04/18 10:13:35 EST, Route to Pharmacy Electronically, [id number], [facility]/pharmacy #[id number] Start Date: 04/04/18 Status: OrderedVoltaren 1% topical [...] control pills) Active initiation(Confirmed) 1working out diagnosis Social History Social History Type Response Smoking Status Former smoker; Tobacco user in household: No; Type: Cigarettes entered on: 01/24/18 Sex
--- NOTE | 2022-02-02 12:20 | ED.BACK ---
HPI - Back Pain/Injury General Chief Complaint: Back Pain/Injury Stated Complaint: Very Low Back Pain Work Injury 02/01/22 Time Seen by Provider: 02/02/22 11:57 Source: patient Mode of arrival: ambulatory History of Present Illness HPI Narrative: 36-year-old female with a past medical history anxiety, asthma, depression, fibromyalgia, presenting to the ED complaining of coccygeal pain s/p getting off her Stilts at work yesterday and it hitting her in the buttock. Reports paresthesias radiating down bilateral lower extremities. Denies fever, chills, urinary incontinence/retention, nausea, vomiting, head injury, numbness MD elicited complaint: back pain and back injury Onset (ago): day(s) Related Data Previous Rx's Medication Instructions Recorded miscellaneous medical supply 1 ea miscellaneous DAILY 99 days 08/16/21 #1 ea albuterol sulfate 2.5 mg/3 mL 2.5 mg (3 mL) inhalation Q6H 15 11/03/21 (0.083 %) solution for nebulization days #180 mL albuterol sulfate 90 mcg/actuation 1 inh inhalation QID PRN shortness 11/03/21 aerosol inhaler of breath or wheezing #6.7 grams omeprazole 40 mg capsule,delayed 40 mg PO DAILY #14 caps 11/22/21 release hydroxyzine HCl 25 mg tablet 25 mg PO BEDTIME #10 tabs 12/06/21 prednisone 20 mg tablet 40 mg PO DAILY #10 tabs 12/06/21 acetaminophen 500 mg tablet 500 mg PO Q6H PRN fever or pain 02/02/22 (Tylenol Extra Strength) #14 tabs cyclobenzaprine 5 mg tablet 5 mg PO Q8H PRN pain (scale score 02/02/22 7-10) 5 days #14 tabs lidocaine 5 % topical patch 1 patch topical DAILY PRN pain #30 02/02/22 (Lidoderm) ea naproxen 500 mg tablet 500 mg PO BID PRN pain 10 days #20 02/02/22 tabs Allergies Allergy/AdvReac Type Severity Reaction Status Date / Time gabapentin [GABAPENTIN] Allergy Unknown UNKNOWN, Verified 12/06/21 10:44 anaphylaxis, SOB hydroxyzine [From [facility]] Allergy Unknown UNKNOWN Verified 12/06/21 10:44 tramadol [TRAMADOL] Allergy Unknown UNKNOWN, Verified 12/06/21 10:44 anxiety Review of Systems Review of Systems: Constitutional: No Weight loss, No Fever, No Chills ENT/Mouth: No Ear Pain, No Nasal Congestion, No Sinus Pain, No Hoarseness, No sore throat, No Rhinorrhea, No Swallowing Difficulty Cardiovascular: No Chest Pain, No SOB Respiratory: No Cough, No Sputum, No Wheezing Gastrointestinal: No Nausea, No Vomiting, No Diarrhea, No Constipation, No Abdominal pain Genitourinary: No Dysuria, No Urinary Frequency, No Hematuria, No Urinary Incontinence/retention, No Flank Pain Musculoskeletal: + joint pain, No Myalgias, No Joint Swelling Skin: No Skin Lesions, No rash Neuro: No Weakness, No Numbness, + Paresthesias Yes all other systems are reviewed and are negative Constitutional: Constitutional: Reports as per [facility] Past Medical History Attestation statement: The following information was validated with the patient. Medical History Anxiety Asthma Depression Fibromyalgia Screening for diabetes mellitus (DM) Screening for hypercholesterolemia Screening for hypothyroidism Thyroid activity decreased Surgical History History of cholecystectomy History of removal of ovarian cyst Family History Family History Father Prediabetes Sleep apnea Hx of fusion of cervical spine Poor circulation Mother Neuropathy Vertigo Diabetes Hypertension Paternal Grandmother Lupus Depression Bipolar 1 disorder Maternal Grandmother Diabetes Other Mental health disorder Social History Social History Housing: Apartment Alcohol intake: never Tobacco use type: Smokeless Tobacco e-Cigarette/Vaping Use: Currently Using Second Hand Smoke Exposure: No Advance Directives: No Advance Directives Information Provided: No service: No Current occupational status: unemployed Cognitive needs: No Hearing needs: No Vision needs: No Physical Exam Vital Signs: Vital Signs: Last Vital Signs Temp 97.6 F 02/02/22 09:54 Pulse 102 H 02/02/22 09:54 Resp 18 02/02/22 09:54 BP 112/75 02/02/22 09:54 Pulse Ox 100 02/02/22 09:54 O2 Del Method 02/02/22 09:54 BMI result Body Mass Index 18.2 Const: General: cooperative, healthy appearing and no acute distress Orientation/consciousness: patient oriented x3 Limitations: no limitations HEENT: Head: Yes normal to inspection and Yes atraumatic Ears: hearing grossly normal bilaterally General nose exam: Normal external nose present Face and sinus: Yes normal facial exam Eyes: General: appearance normal, both eyes and all related structures EOM: EOMs intact bilaterally Neck: Neck: Yes normal visual inspection and Yes no meningeal signs Resp: Effort & Inspection: normal respiratory effort and no respiratory distress Cardio: Rate: regular rate Heart sounds: S1 normal heart sound present and S2 normal heart sound present Peripheral pulses: Peripheral pulses 2+ throughout GI: Inspection: Yes normal to inspection Palpation (GI): Soft to palpation, nontender, no guarding and not rigid : General: Yes no CVA tenderness Back/Spine/Pelvis: Other: No midline thoracic/lumbar spinous tenderness/step-off or deformity. + coccygeal tenderness, no regional deformity/ecchymosis or erythema Back: no CVA tenderness Skin: Rashes: no rashes Wounds: no wounds Neuro: Other: Strength intact throughout. No saddle anesthesia. Sensation intact to light touch. Neurovascular intact distally General: patient oriented x3, gait normal, tone normal, moves all extremities, no meningeal signs and no focal motor deficits Gait exam (Neuro): Normal gait present Motor exam (neuro): 5/5 motor strength present throughout Extrem: General: Yes normal to inspection Course Course Course Narrative: XR sacrum coccyx min 2V IMPRESSION: Unremarkable examination. > Results discussed with patient including worrisome signs and symptoms and strict return precautions, and when to return to the emergency department. They verbalized understanding and feel safe for discharge at this time. MDM - Back Pain/Injury MDM Narrative Medical decision making narrative: 36-year-old female with a past medical history anxiety, asthma, depression, fibromyalgia, presenting to the ED complaining of coccygeal pain s/p getting off her Stilts at work yesterday and it hitting her in the buttock. On exam mildly tachycardic likely from pain, NAD, nontoxic appearing, + coccygeal tenderness noted, no red flag symptoms, no saddle anesthesia. Ambulating with steady gait. Concern for fracture vs contusion. Low suspicion for cauda equina, cord compression or epidural abscess or infection Plan: X-rays, IM Toradol, Lidoderm patch Differential Diagnosis Differential diagnosis: Likely lumbar radiculopathy and strain of lumbar region Medical Records Attestation: I reviewed the patient's medical records. Lab Data Attestation: I reviewed the patient's lab results. Discharge Plan Discharge Clinical Impression: Acute coccygeal pain Patient Disposition: Home, Self-Care Instructions: Acute Low Back Pain (ED) Additional Instructions: your x-ray was unremarkable Your pain is likely musculoskeletal Flexeril is a muscle relaxer, take at night as it makes you drowsy, do not drive, drink alcohol, or operate machinery while taking it Naproxen as an anti-inflammatory / pain medication, take with food Lidoderm patches are numbing patches, apply to painful area In addition take Tylenol at home If symptoms persist or worsen, pain becomes unbearable, you developed urinary retention or incontinence, or weakness return to the ED Prescriptions: New acetaminophen [Tylenol Extra Strength] 500 mg tablet 500 mg PO Q6H PRN (Reason: fever or pain) Qty: 14 0RF lidocaine [Lidoderm] 5 % adhesive patch,medicated 1 patch topical DAILY MDD remove after 12 hours PRN (Reason: pain) Qty: 30 0RF Rx Instructions: leave on most painful area for up to 12 hrs naproxen 500 mg tablet 500 mg PO BID PRN (Reason: pain) 10 Days Qty: 20 0RF cyclobenzaprine 5 mg tablet 5 mg PO Q8H PRN (Reason: pain (scale score 7-10)) 5 Days Qty: 14 0RF No Action albuterol sulfate 2.5 mg /3 mL (0.083 %) solution for nebulization 2.5 mg inhalation Q6H 15 Days Qty: 180 0RF albuterol sulfate 90 mcg/actuation HFA aerosol inhaler 1 inh inhalation QID PRN (Reason: shortness of breath or wheezing) Qty: 6.7 2RF omeprazole 40 mg capsule,delayed release(DR/EC) 40 mg PO DAILY Qty: 14 0RF hydroxyzine HCl 25 mg tablet 25 mg PO BEDTIME Qty: 10 0RF prednisone 20 mg tablet 40 mg PO DAILY Qty: 10 0RF miscellaneous medical supply Misc 1 ea miscellaneous DAILY 99 Days Qty: 1 0RF Referrals: Isaac,John, PA-C [Primary Care Provider] - 1 week Stand Alone Forms: Work/School Release
[2022-02-02] MEDS: Lidocaine 4 % Patch ADH..PATCH 1 PATCH TRANSDERMA (12:52)
[2022-02-02] MEDS: Ketorolac Tromethamine 30 MG/ML VIAL IVPUSH (12:52)
== END 2022-02-02 14:44 | disposition home or self-care (01) ==
PROVIDERS: Emergency Provider Emergency Medicine; PCP Physician Assistant
DX: M54.50 Low back pain, unspecified (principal); M53.3 Sacrococcygeal disorders, not elsewhere classified; Z79.899 Other long term (current) drug therapy
CPT/HCPCS: 72220; 96374; 99283; 99284; J1885